=== PATIENT | female | born 2000 | race Caucasian/White ===

== ENCOUNTER 2022-11-06 10:55 | Emergency (ER) | payer MEDICAID, OTHER ==
[2022-11-06 12:24] LABS: BILIRUBIN,URINE NEGATIVE (NEGATIVE); GLUCOSE, URINE (UA) NEGATIVE (NEGATIVE); KETONES,URINE (UA) NEGATIVE (NEGATIVE); LEUKOCYTE ESTERASE, URINE NEGATIVE (NEGATIVE); NITRITE,URINE NEGATIVE (NEGATIVE); OCCULT BLOOD,URINE NEGATIVE (NEGATIVE); PROTEIN,URINE NEGATIVE (NEGATIVE); UROBILINOGEN,URINE 1 (NORMAL) E.U./dL (NORMAL)
[2022-11-06 12:25] LABS: CLARITY,URINE CLEAR (CLEAR); HCG UR QUAL NEGATIVE
[2022-11-06] MEDS ORDERED: PHENAZOPYRIDINE 100 MG TABLET PO STA (12:35)
--- NOTE | 2022-11-06 12:38 | ED Physician Documentation ---
History of Present Illness - Stated complaint Stated Complaint: FEMALE - Chief complaint Chief Complaint: UTI - History obtained from History obtained from: Patient - Additonal information Additional information: The patient comes to the emergency department chief complaint of urinary frequency and mild dysuria for the last 2 weeks. She denies any fevers or chills. No nausea or vomiting. No vaginal symptoms. No blood in her urine. She states she keeps feeling like she has to pee but it is just "a false alarm" and that little to nothing comes out. She states she drinks a lot of water. Harman joseph has had urinary tract infections before. No other complaints at this time. PD PAST MEDICAL HISTORY - Present Medications Home Medications: Ambulatory Orders Medication Instructions Recorded Confirmed Phenazopyridine HCl [Pyridium] 200 mg PO TID #6 tablet 11/06/22 - Allergies Allergies/Adverse Reactions: Allergies Allergy/AdvReac Type Severity Reaction Status Date / Time No Known Drug Allergies Allergy Verified 11/06/22 11:20 PD ED PE NORMAL - Vitals Vital signs reviewed: Yes - General General: Alert and oriented X 3, No acute distress, Well developed/nourished - HEENT HEENT: Atraumatic, PERRL, EOMI, Moist mucous membranes - Neck Neck: Supple, no meningeal sign - Cardiac Cardiac: RRR, No murmur - Respiratory Respiratory: No respiratory distress, Clear bilaterally - Abdomen Abdomen: Soft, Non tender, Non distended - Derm Derm: Warm and dry - Extremities Extremities: No deformity - Neuro Neuro: Alert and oriented X 3 - Psych Psych: Normal mood, Normal affect Results - Vitals Vitals: Vital Signs - 24 hr 11/06/22 11:18 Temperature 36.4 C L Heart Rate 70 Respiratory 20 Rate Blood Pressure 136/97 H O2 Saturation 97 Oxygen O2 Source Room air - Labs Labs: Laboratory Tests 11/06/22 12:16 Urine Color YELLOW Urine Clarity CLEAR Urine pH 6.0 Ur Specific [place] <=1.005 Urine Protein NEGATIVE Urine Glucose (UA) NEGATIVE Urine Ketones NEGATIVE Urine Occult Blood NEGATIVE Urine Nitrite NEGATIVE Urine Bilirubin NEGATIVE Urine Urobilinogen 1 (NORMAL) Ur Leukocyte Esterase NEGATIVE Ur Microscopic Review NOT INDICATED Urine Culture Comments NOT INDICATED Urine HCG, Qual NEGATIVE PD Medical Decision Making - ED course Complexity details: reviewed results, re-evaluated patient, considered differential, d/w patient ED course: Urinalysis was performed and found to be negative. I did place the patient on Pyridium and encouraged her to follow-up with her primary care physician or her plant maintenance engineer. We have discussed the usual indications for return. Departure - Departure Disposition: 01 Home, Self Care Clinical Impression: Dysuria Condition: Stable Instructions: ED Dysuria Uncertain Cause Prescriptions: Phenazopyridine HCl [Pyridium] 200 mg PO TID #6 tablet Comments: Your urinalysis was negative today. It is not clear why you have the sense of frequent urge to urinate and the discomfort with urination. We will put you on the medicine to help with this discomfort and you should continue to drink plenty of fluids. Please schedule a follow-up with your primary doctor for further concerns. Your prescription has been electronically transmitted to the [facility] pharmacy in [place], your pharmacy of choice on record.
[2022-11-06 12:57] VITALS: BP 94/62
== END 2022-11-06 12:54 | disposition home or self-care (01) ==
LOC: ED 10:55
DX: R30.0 Dysuria (principal)
CPT/HCPCS: 81003; 81025; 99283; A9270; 81001; 87086

== ENCOUNTER 2022-11-18 18:02 | Emergency (ER) | payer MEDICAID ==
--- NOTE | 2022-11-18 18:57 | ED Physician Documentation ---
History of Present Illness - Stated complaint Stated Complaint: SI - Chief complaint Chief Complaint: MHE - Additonal information Additional information: 22-year-old female presents emergency department with her kohinoor operator for evaluation of suicide attempt. Currently a resident at [facility]. Reportedly had gone into the bathroom where she took off her shoelaces and tied these shoelaces around her neck. She was notified that her mom had called to speak with her it was at this point that the housing staff became aware that she was attempting self-harm. However the patient was able to untie the shoestrings and open the door. Pt preferes the name Han Past medical history most significant for ADHD, autism dyslexia, bipolar disorder, OCD, panic attacks, gender dysphoria, depression and anxiety. Patient takes fluoxetine 20 mg daily as well as topiramate 25 mg daily. She recently established with our new mental health provider DYLAN Marcano. scheduled ot see in f/u 12/03/22 Patient has a flat affect. Poor eye contact. Does not clearly contract for safety but is clear to states she does not desire to be hospitalized. Review of Systems Psychiatric: reports: Depressed, Suicidal, Anxiety PD PAST MEDICAL HISTORY - Present Medications Home Medications: Ambulatory Orders Medication Instructions Recorded Confirmed Fluoxetine HCl [Prozac] 40 mg PO DAILY 11/18/22 11/18/22 Topiramate [Topamax] 25 mg PO DAILY 11/18/22 11/18/22 - Allergies Allergies/Adverse Reactions: Allergies Allergy/AdvReac Type Severity Reaction Status Date / Time No Known Drug Allergies Allergy Verified 11/18/22 18:18 PD ED PE NORMAL - General General: Alert and oriented X 3, Well developed/nourished - HEENT HEENT: Atraumatic, Moist mucous membranes - Neck Neck: Supple, no meningeal sign, Other (No signs of traumatic strangulation on the neck) - Cardiac Cardiac: RRR, No murmur - Respiratory Respiratory: No respiratory distress, Clear bilaterally - Abdomen Abdomen: Normal bowel sounds, Soft, Non tender, Non distended - Derm Derm: Normal color, Warm and dry, No rash - Extremities Extremities: No deformity - Neuro Neuro: Alert and oriented X 3, accident report clerk 2-12 intact Eye Opening: Spontaneous Motor: Obeys Commands Verbal: Oriented GCS Score: 15 - Psych Psych: No: Normal affect (Flat affect. Poor eye contact. States she does not want to be here anymore. Does not have a plan for suicide per se. Reports she does not want to be hospitalized. States she has been in and out of hospital since she was 17) Results - Vitals Vitals: Vital Signs - 24 hr 11/18/22 11/18/22 18:09 19:29 Temperature 36.4 C L Heart Rate 90 Respiratory 16 Rate Blood Pressure 144/86 H O2 Saturation 98 98 Oxygen O2 Source Room air - Labs Labs: Laboratory Tests 11/18/22 11/18/22 11/18/22 18:58 18:58 18:58 WBC 9.0 RBC 5.05 Hgb 14.0 Hct 43.6 MCV 86.3 MCH 27.7 MCHC 32.1 RDW 13.7 Plt Count 376 MPV 9.1 Neut # (Auto) 5.9 Lymph # (Auto) 2.4 [place] # (Auto) 0.6 Eos # (Auto) 0.1 Baso # (Auto) 0.0 Absolute Nucleated RBC 0.00 Nucleated RBC % 0.0 Sodium 137 Potassium 3.3 L Chloride 107 Carbon Dioxide 23 Anion Gap 7.0 BUN 8 Creatinine 0.8 Estimated GFR (MDRD) 91 Glucose 115 H Calcium 8.9 Magnesium 2.3 Total Bilirubin 0.6 AST 28 ALT 21 Alkaline Phosphatase 61 Total Creatine Kinase 377 H Total Protein 7.4 Albumin 3.9 Globulin 3.5 Albumin/Globulin Ratio 1.1 Lipase 22 TSH 0.60 Urine Color Urine Clarity Urine pH Ur Specific [place] Urine Protein Urine Glucose (UA) Urine Ketones Urine Occult Blood Urine Nitrite Urine Bilirubin Urine Urobilinogen Ur Leukocyte Esterase Urine RBC Urine WBC Ur Squamous Epith Cells Amorphous Sediment Urine Bacteria Ur Microscopic Review Urine Culture Comments Urine HCG, Qual Salicylates < 6.0 Urine Opiates Screen Ur Oxycodone Screen Urine Methadone Screen Ur Propoxyphene Screen Acetaminophen < 10 L Ur Barbiturates Screen Ur Tricyclics Screen Ur Phencyclidine Scrn Ur Amphetamine Screen U Methamphetamines Scrn U Benzodiazepines Scrn Urine Cocaine Screen U Cannabinoids Screen Ethyl Alcohol < 5.0 SARS-CoV-2 (PCR) 11/18/22 11/18/22 19:27 19:36 WBC RBC Hgb Hct MCV MCH MCHC RDW Plt Count MPV Neut # (Auto) Lymph # (Auto) [place] # (Auto) Eos # (Auto) Baso # (Auto) Absolute Nucleated RBC Nucleated RBC % Sodium Potassium Chloride Carbon Dioxide Anion Gap BUN Creatinine Estimated GFR (MDRD) Glucose Calcium Magnesium Total Bilirubin AST ALT Alkaline Phosphatase Total Creatine Kinase Total Protein Albumin Globulin Albumin/Globulin Ratio Lipase TSH Urine Color YELLOW Urine Clarity CLOUDY Urine pH 5.5 Ur Specific [place] >=1.030 H Urine Protein 30 H Urine Glucose (UA) NEGATIVE Urine Ketones NEGATIVE Urine Occult Blood NEGATIVE Urine Nitrite NEGATIVE Urine Bilirubin NEGATIVE Urine Urobilinogen 1 (NORMAL) Ur Leukocyte Esterase TRACE H Urine RBC 0-5 Urine WBC 4-5 Ur Squamous Epith Cells FEW Squamous Amorphous Sediment Few Urine Bacteria Few Ur Microscopic Review INDICATED Urine Culture Comments INDICATED Urine HCG, Qual NEGATIVE Salicylates Urine Opiates Screen NEGATIVE Ur Oxycodone Screen NEGATIVE Urine Methadone Screen NEGATIVE Ur Propoxyphene Screen NEGATIVE Acetaminophen Ur Barbiturates Screen NEGATIVE Ur Tricyclics Screen NEGATIVE Ur Phencyclidine Scrn NEGATIVE Ur Amphetamine Screen NEGATIVE U Methamphetamines Scrn NEGATIVE U Benzodiazepines Scrn POSITIVE H Urine Cocaine Screen NEGATIVE U Cannabinoids Screen NEGATIVE Ethyl Alcohol SARS-CoV-2 (PCR) NOT DETECTED PD Medical Decision Making - ED course Complexity details: reviewed results, re-evaluated patient, considered differential, d/w patient ED course: 22-year-old female who has a history of ADHD, autism, dyslexia borderline disorder, OCD as well as panic disorder and gender dysphoria presents to the emergency department after she attempted to tie a shoelace around her neck while at [employer]. Patient has a very flat affect and poor eye contact. She states that she does not want to be hospitalized though she is not able to tell me a safety plan for discharge. She was recently established with our psychiatric mental health PUMP SERVICER Jeet and has follow-up scheduled for December 03. I obtained the usual screening mental health labs today and per my in terpretation no acute worrisome findings. I do note that her CK is mildly elevated at 344 but her renal function is normal. I do not believe that this is clinically significant. Urine drug screen, alcohol, Tylenol and salicylates were all negative otherwise. 2144: Patient is awaiting telepsych consult. She has told this provider however that if mental health hospitalization was recommended she would not be voluntary. We did discuss an alternative plan of boarding overnight in the emergency department to speak with social work and patient felt like that would be appropriate. At this time she has remained stable here in the emergency department with no behavioral outbursts noted. Patient will be signed out to my nighttime colleague to follow-up on any acute overnight events and telepsych recommendations. Departure - Departure Clinical Impression: Suicide attempt, Borderline personality disorder in adult
[2022-11-18 19:04] LABS: BASOPHILS % (AUTO) 0.4 %; EOSINOPHILS # (AUTO) 0.1 10^3/uL (0.0-0.7); EOSINOPHILS % (AUTO) 0.6 %; HCT - HEMATOCRIT 43.6 % (37.0-47.0); LYMPHOCYTES # (AUTO) 2.4 10^3/uL (1.5-3.5); LYMPHOCYTES % (AUTO) 26.6 %; MEAN CORPUSCULAR HEMOGLOBIN 27.7 pg (27.0-31.0); MEAN CORPUSCULAR HGB CONC 32.1 g/dL (32.0-36.0); MEAN CORPUSCULAR VOLUME 86.3 fL (81.0-99.0); MEAN PLATELET VOLUME 9.1 fL (7.9-10.8); MONOCYTES # (AUTO) 0.6 10^3/uL (0.0-1.0); MONOCYTES % (AUTO) 6.5 %; NEUTROPHILS # (AUTO) 5.9 10^3/uL (1.5-6.6); NEUTROPHILS % (AUTO) 65.6 %; PLT - PLATELET COUNT 376 10^3/uL (130-450); RED BLOOD COUNT 5.05 10^6/uL (4.20-5.40); RED CELL DISTRIBUTION WIDTH 13.7 % (12.0-15.0)
[2022-11-18 19:20] LABS: ACETAMINOPHEN < 10 ug/mL (10-30); ALBUMIN 3.9 g/dL (3.2-5.5); ALBUMIN/GLOBULIN RATIO 1.1 (1.0-2.2); ALKALINE PHOSPHATASE 61 IU/L (42-121); ALT ALANINE AMINOTRANSFERASE 21 IU/L (10-60); AST ASPARTATE AMINOTRANSFERASE 28 IU/L (10-42); BILIRUBIN,TOTAL 0.6 mg/dL (0.2-1.0); BUN - BLOOD UREA NITROGEN 8 mg/dL (6-20); CALCIUM 8.9 mg/dL (8.5-10.3); CARBON DIOXIDE - CO2 23 mmol/L (21-32); CHLORIDE 107 mmol/L (101-111); CK- CREATINE KINASE 377 IU/L (22-269); CREATININE 0.8 mg/dL (0.4-1.0); ETOH - ETHANOL < 5.0 mg/dL; GFR - MDRD 91 (>89); GLUCOSE 115 mg/dL (70-100); LIPASE 22 U/L (22-51); MAGNESIUM 2.3 mg/dL (1.7-2.8); POTASSIUM 3.3 mmol/L (3.5-5.0); SALICYLATE < 6.0 mg/dL; SODIUM 137 mmol/L (135-145); TOTAL PROTEIN 7.4 g/dL (6.7-8.2)
[2022-11-18 19:38] LABS: MUDS CUTOFF CONCENTRATIONS CUTOFF CONC BELOW:
[2022-11-18 19:42] LABS: GLUCOSE, URINE (UA) NEGATIVE (NEGATIVE); KETONES,URINE (UA) NEGATIVE (NEGATIVE); LEUKOCYTE ESTERASE, URINE TRACE (NEGATIVE); NITRITE,URINE NEGATIVE (NEGATIVE); OCCULT BLOOD,URINE NEGATIVE (NEGATIVE); PH,URINE 5.5 PH (5.0-7.5); PROTEIN,URINE 30 mg/dL (NEGATIVE); UROBILINOGEN,URINE 1 (NORMAL) E.U./dL (NORMAL)
[2022-11-18 19:44] LABS: BILIRUBIN,URINE NEGATIVE (NEGATIVE); CLARITY,URINE CLOUDY (CLEAR); ICTOTEST,URINE NEGATIVE
[2022-11-18 19:45] LABS: HCG UR QUAL NEGATIVE
[2022-11-18 19:51] LABS: AMPHETAMINE SCREEN,URINE NEGATIVE (NEGATIVE); BARBITURATE SCREEN,UR NEGATIVE (NEGATIVE); BENZODIAZEPINES SCREEN, URINE POSITIVE (NEGATIVE); COCAINE SCREEN URINE NEGATIVE (NEGATIVE); METHADONE SCREEN, URINE NEGATIVE (NEGATIVE); METHAMPHETAMINES SCREEN, URINE NEGATIVE (NEGATIVE); OPIATE SCREEN, URINE NEGATIVE (NEGATIVE); OXYCODONE SCREEN, URINE NEGATIVE (NEGATIVE); PROPOXYPHENE SCREEN, URINE NEGATIVE (NEGATIVE); THC CANNABINOID SCREEN, URINE NEGATIVE (NEGATIVE); TRICYCLIC ANTIDEPRESSANT,URINE NEGATIVE (NEGATIVE)
[2022-11-18 19:55] LABS: AMORPHOUS SEDIMENT,UR Few /LPF; BACTERIA,URINE Few /HPF (None Seen); RBC,URINE 0-5 /HPF (0-5); SQUAMOUS EPITHELIAL CELL,UR FEW Squamous (<= Few)
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
[2022-11-19] MEDS ORDERED: LORazepam 1 MG TABLET PO STA (05:57)
[2022-11-19 13:00] VITALS: BP 122/72
--- NOTE | 2022-11-19 13:16 | ED Physician Documentation ---
ED Addendum - Addendum Addendum: 11/19/22 13:14 Patient was evaluated by IMGUEL, Esperanza, she does not feel that the patient is an imminent threat. She safety plan with the patient. She feels that the patient is safe for home. DCR states that the patient does not meet criteria for involuntary detainment. Patient does not wish to go voluntarily to a facility for treatment. Patient will have a counselor at [place] today. Patient will also follow-up with a outpatient counselor tomorrow from the DCR office. Patient contracts for safety. Patient will be discharged to the care of [place]. This document was made in part using voice recognition software. While efforts are made to proofread this document, sound alike and grammatical errors may occur. Departure - Departure Disposition: 01 Home, Self Care Clinical Impression: Suicide attempt, Borderline personality disorder in adult Condition: Good Instructions: ED Depression, ED Contract No Harm Follow-Up: Your,doctor in 1 week [Other] Comments: You have elected not to go to a hospital today for further treatment. The DCR does not feel that you meet criteria for an involuntary hold. You have safety planned with the DCR. There is a counselor [place] available to you. Please return if you worsen and please follow-up as scheduled. Crisis Line and is available to talk to someone [email or web address] is also available to chat with someone online if you prefer. There are also many resources on this website and apps for your phone to help with your mental health You can also text the word START to [phone] to chat with someome via text.
== END 2022-11-19 13:39 | disposition home or self-care (01) ==
LOC: ED 18:02
DX: F90.2 Attention-deficit hyperactivity disorder, combined type (principal); F84.0 Autistic disorder; R48.0 Dyslexia and alexia; F42.9 Obsessive-compulsive disorder, unspecified; F64.9 Gender identity disorder, unspecified; F31.4 Bipolar disorder, current episode depressed, severe, without psychotic features; Z20.822 Contact with and (suspected) exposure to COVID-19
CPT/HCPCS: 36415; 80053; 80306; 80307; 80320; 80329; 81001; 81025; 82550; 83690; 83735; 84443; 85025; 87086; 87635; 99283; 99284; G0425; Q3014; 81003

== ENCOUNTER 2022-12-06 22:55 | Emergency (ER) | payer OTHER, MEDICAID ==
[2022-12-06 23:43] LABS: BASOPHILS % (AUTO) 0.4 %; EOSINOPHILS # (AUTO) 0.1 10^3/uL (0.0-0.7); HCT - HEMATOCRIT 39.2 % (37.0-47.0); HGB - HEMOGLOBIN 12.6 g/dL (12.0-16.0); LYMPHOCYTES # (AUTO) 2.9 10^3/uL (1.5-3.5); LYMPHOCYTES % (AUTO) 32.5 %; MEAN CORPUSCULAR HGB CONC 32.1 g/dL (32.0-36.0); MEAN CORPUSCULAR VOLUME 87.1 fL (81.0-99.0); MEAN PLATELET VOLUME 9.1 fL (7.9-10.8); MONOCYTES # (AUTO) 0.8 10^3/uL (0.0-1.0); MONOCYTES % (AUTO) 9.1 %; NEUTROPHILS % (AUTO) 56.4 %; PLT - PLATELET COUNT 359 10^3/uL (130-450); RED CELL DISTRIBUTION WIDTH 13.4 % (12.0-15.0); WHITE BLOOD COUNT 8.9 x10^3/uL (4.8-10.8)
[2022-12-06 23:57] LABS: MUDS CUTOFF CONCENTRATIONS CUTOFF CONC BELOW:
[2022-12-06 23:59] LABS: ACETAMINOPHEN < 10 ug/mL (10-30); ALBUMIN 3.3 g/dL (3.2-5.5); ALBUMIN/GLOBULIN RATIO 0.9 (1.0-2.2); ALKALINE PHOSPHATASE 63 IU/L (42-121); ALT ALANINE AMINOTRANSFERASE 19 IU/L (10-60); AST ASPARTATE AMINOTRANSFERASE 17 IU/L (10-42); BILIRUBIN,TOTAL 0.5 mg/dL (0.2-1.0); BUN - BLOOD UREA NITROGEN 13 mg/dL (6-20); CALCIUM 8.7 mg/dL (8.5-10.3); CARBON DIOXIDE - CO2 21 mmol/L (21-32); CHLORIDE 109 mmol/L (101-111); CREATININE 0.9 mg/dL (0.4-1.0); ETOH - ETHANOL < 5.0 mg/dL; GFR - MDRD 80 (>89); GLUCOSE 97 mg/dL (70-100); LIPASE 26 U/L (22-51); MAGNESIUM 2.1 mg/dL (1.7-2.8); POTASSIUM 3.5 mmol/L (3.5-5.0); SALICYLATE < 6.0 mg/dL; SODIUM 137 mmol/L (135-145); TOTAL PROTEIN 6.8 g/dL (6.7-8.2)
[2022-12-07] LABS: BILIRUBIN,URINE NEGATIVE (NEGATIVE); GLUCOSE, URINE (UA) NEGATIVE (NEGATIVE); KETONES,URINE (UA) NEGATIVE (NEGATIVE); LEUKOCYTE ESTERASE, URINE TRACE (NEGATIVE); NITRITE,URINE NEGATIVE (NEGATIVE); OCCULT BLOOD,URINE NEGATIVE (NEGATIVE); PH,URINE 6.5 PH (5.0-7.5); PROTEIN,URINE NEGATIVE (NEGATIVE); UROBILINOGEN,URINE 1 (NORMAL) E.U./dL (NORMAL)
[2022-12-07 00:11] LABS: AMPHETAMINE SCREEN,URINE NEGATIVE (NEGATIVE); BACTERIA,URINE Moderate /HPF (None Seen); BARBITURATE SCREEN,UR NEGATIVE (NEGATIVE); BENZODIAZEPINES SCREEN, URINE NEGATIVE (NEGATIVE); CLARITY,URINE CLEAR (CLEAR); COCAINE SCREEN URINE NEGATIVE (NEGATIVE); HCG UR QUAL NEGATIVE; METHADONE SCREEN, URINE NEGATIVE (NEGATIVE); METHAMPHETAMINES SCREEN, URINE NEGATIVE (NEGATIVE); OPIATE SCREEN, URINE NEGATIVE (NEGATIVE); OXYCODONE SCREEN, URINE NEGATIVE (NEGATIVE); PROPOXYPHENE SCREEN, URINE NEGATIVE (NEGATIVE); RBC,URINE None Seen /HPF (0-5); SQUAMOUS EPITHELIAL CELL,UR FEW Squamous (<= Few); THC CANNABINOID SCREEN, URINE POSITIVE (NEGATIVE); TRICYCLIC ANTIDEPRESSANT,URINE NEGATIVE (NEGATIVE)
--- NOTE | 2022-12-07 01:27 | ED Physician Documentation ---
PD HPI MHE - Stated complaint Stated Complaint: SI - Chief complaint Chief Complaint: MHE - History obtained from History obtained from: Patient - Additional information Additional information: Patient is a 22-year-old presenting for evaluation of having suicidal thoughts. Patient states that they became upset this evening when a male that they like started to cuddle and be affectionate towards a friend of theirs.The patient then went into the bathroom and removed our razor blade from a shaving razor and cut himself on the thighs and right wrist. Patient states that this was to cope with her feelings and not trying to kill himself. Patient was seen here earlier this month and at that time was evaluated by telepsychiatry and the DCR and was discharged home. Patient states that at this time they feel they need inpatient help as they are unsure of how to cope with their feelings.Patient is on fluoxetine and topiramate. Has not started Strattera. Patient prefers to be called Han. Review of Systems Constitutional: denies: Fever Cardiac: denies: Chest pain / pressure Respiratory: denies: Dyspnea GI: denies: Abdominal Pain Skin: reports: Laceration (s) (superficial) PD PAST MEDICAL HISTORY - Present Medications Home Medications: Ambulatory Orders Medication Instructions Recorded Confirmed Fluoxetine HCl [Prozac] 40 mg PO DAILY 11/18/22 11/18/22 Topiramate [Topamax] 25 mg PO DAILY 11/18/22 11/18/22 Atomoxetine HCl [Strattera] 12/06/22 - Allergies Allergies/Adverse Reactions: Allergies Allergy/AdvReac Type Severity Reaction Status Date / Time No Known Drug Allergies Allergy Verified 11/18/22 18:18 - Social History Does the pt smoke?: No Smoking Status: Never smoker Does the pt drink ETOH?: No Does the pt have substance abuse?: No - Immunizations Immunizations are current?: Yes - POLST Patient has POLST: No PD ED PE NORMAL - General General: Alert and oriented X 3, No acute distress, Well developed/nourished - HEENT HEENT: Atraumatic - Neck Neck: Supple, no meningeal sign - Cardiac Cardiac: RRR, No murmur - Respiratory Respiratory: No respiratory distress, Clear bilaterally - Abdomen Abdomen: Soft, Non tender - Extremities Extremities: Other (Superficial lacerations to right wrist and thighs) - Neuro Neuro: Alert and oriented X 3, No motor deficit, Normal speech Results - Vitals Vitals: Vital Signs - 24 hr 12/06/22 23:00 Temperature 36.8 C Heart Rate 83 Respiratory 16 Rate Blood Pressure 103/62 O2 Saturation 98 Oxygen O2 Source Room air - Labs Labs: Laboratory Tests 12/06/22 12/06/22 12/06/22 23:35 23:35 23:35 WBC 8.9 RBC 4.50 Hgb 12.6 Hct 39.2 MCV 87.1 MCH 28.0 MCHC 32.1 RDW 13.4 Plt Count 359 MPV 9.1 Neut # (Auto) 5.0 Lymph # (Auto) 2.9 [place] # (Auto) 0.8 Eos # (Auto) 0.1 Baso # (Auto) 0.0 Absolute Nucleated RBC 0.00 Nucleated RBC % 0.0 Sodium 137 Potassium 3.5 Chloride 109 Carbon Dioxide 21 Anion Gap 7.0 BUN 13 Creatinine 0.9 Estimated GFR (MDRD) 80 L Glucose 97 Calcium 8.7 Magnesium 2.1 Total Bilirubin 0.5 AST 17 ALT 19 Alkaline Phosphatase 63 Total Protein 6.8 Albumin 3.3 Globulin 3.5 Albumin/Globulin Ratio 0.9 L Lipase 26 TSH 1.75 Urine Color Urine Clarity Urine pH Ur Specific [place] Urine Protein Urine Glucose (UA) Urine Ketones Urine Occult Blood Urine Nitrite Urine Bilirubin Urine Urobilinogen Ur Leukocyte Esterase Urine RBC Urine WBC Ur Squamous Epith Cells Urine Bacteria Ur Microscopic Review Urine Culture Comments Urine HCG, Qual Salicylates < 6.0 Urine Opiates Screen Ur Oxycodone Screen Urine Methadone Screen Ur Propoxyphene Screen Acetaminophen < 10 L Ur Barbiturates Screen Ur Tricyclics Screen Ur Phencyclidine Scrn Ur Amphetamine Screen U Methamphetamines Scrn U Benzodiazepines Scrn Urine Cocaine Screen U Cannabinoids Screen Ethyl Alcohol < 5.0 12/06/22 23:49 WBC RBC Hgb Hct MCV MCH MCHC RDW Plt Count MPV Neut # (Auto) Lymph # (Auto) [place] # (Auto) Eos # (Auto) Baso # (Auto) Absolute Nucleated RBC Nucleated RBC % Sodium Potassium Chloride Carbon Dioxide Anion Gap BUN Creatinine Estimated GFR (MDRD) Glucose Calcium Magnesium Total Bilirubin AST ALT Alkaline Phosphatase Total Protein Albumin Globulin Albumin/Globulin Ratio Lipase TSH Urine Color YELLOW Urine Clarity CLEAR Urine pH 6.5 Ur Specific [place] >=1.030 H Urine Protein NEGATIVE Urine Glucose (UA) NEGATIVE Urine Ketones NEGATIVE Urine Occult Blood NEGATIVE Urine Nitrite NEGATIVE Urine Bilirubin NEGATIVE Urine Urobilinogen 1 (NORMAL) Ur Leukocyte Esterase TRACE H Urine RBC None Seen Urine WBC 4-5 Ur Squamous Epith Cells FEW Squamous Urine Bacteria Moderate H Ur Microscopic Review INDICATED Urine Culture Comments INDICATED Urine HCG, Qual NEGATIVE Salicylates Urine Opiates Screen NEGATIVE Ur Oxycodone Screen NEGATIVE Urine Methadone Screen NEGATIVE Ur Propoxyphene Screen NEGATIVE Acetaminophen Ur Barbiturates Screen NEGATIVE Ur Tricyclics Screen NEGATIVE Ur Phencyclidine Scrn NEGATIVE Ur Amphetamine Screen NEGATIVE U Methamphetamines Scrn NEGATIVE U Benzodiazepines Scrn NEGATIVE Urine Cocaine Screen NEGATIVE U Cannabinoids Screen POSITIVE H Ethyl Alcohol PD Medical Decision Making - ED course Complexity details: reviewed results, re-evaluated patient, d/w patient ED course: Patient presenting for evaluation of suicidal thoughts. They seem to be increasing in the past Month. Tonight patient became upset and cut himself with a razor blade several times. None of these wounds require repair. Patient feels that they need some stabilization in an inpatient setting. Screening labs were obtained without significant findings.Urine analysis suggest infection.Patient does report some episodes of dysuria over the past 2 weeks so we will treat with Macrobid. As the patient is voluntary, nursing staff reached out to local psychiatric facilities for acceptance but no bed was found overnight. Thus patient is remained in the emergency department overnight. Patient has been calm and cooperative. Social work consult has been placed. Patient will be signed out to oncoming physician at shift change. Departure - Departure Clinical Impression: Depression, UTI (urinary tract infection), Self-harming behavior Condition: Stable
[2022-12-07] MEDS ORDERED: NITROFURANTOIN MACRO 100 MG CAPSULE PO STA (06:49)
[2022-12-07 12:47] VITALS: BP 112/72
== END 2022-12-07 12:45 | disposition home or self-care (01) ==
LOC: ED 22:55
DX: S71.119A Laceration without foreign body, unspecified thigh, initial encounter (principal); S61.511A Laceration without foreign body of right wrist, initial encounter; X78.8XXA Intentional self-harm by other sharp object, initial encounter; Y93.89 Activity, other specified; F32.A Depression, unspecified; N39.0 Urinary tract infection, site not specified
CPT/HCPCS: 36415; 80053; 80306; 80307; 80320; 80329; 81001; 81025; 83690; 83735; 84443; 85025; 87086; 99283; 99284; A9270; 81003; 82550

== ENCOUNTER 2022-12-11 15:26 | Emergency (ER) | payer OTHER, MEDICAID ==
[2022-12-11 15:36] VITALS: BP 143/95
--- NOTE | 2022-12-11 15:39 | ED Physician Documentation ---
History of Present Illness - Stated complaint Stated Complaint: LT EYE SWELLING,PX - Chief complaint Chief Complaint: Heent - Additonal information Additional information: 22-year-old female presents to the emergency department for evaluation of swelling and erythema on her scalp that began 4 days ago after using an [id number] hair dye. She thinks she had an allergic reaction to it she immediately rinsed all of the dye from her hair and has noticed that she continues to have redness and some pruritus. She was going to try and not treat this however this morning she woke up and had some swelling around her left eye. No trauma. No vision changes. She has a small amount of erythema and induration but no pain with eye movement. No history of similar in the past Review of Systems Constitutional: denies: Fever Eyes: denies: Loss of vision, Decreased vision, Photophobia, Discharge, Irritation Skin: reports: Lesions PD PAST MEDICAL HISTORY - Present Medications Home Medications: Ambulatory Orders Medication Instructions Recorded Confirmed Fluoxetine HCl [Prozac] 40 mg PO DAILY 11/18/22 11/18/22 Topiramate [Topamax] 25 mg PO DAILY 11/18/22 11/18/22 Atomoxetine HCl [Strattera] 12/06/22 Nitrofurantoin [Macrobid] 100 mg PO BID #14 cap 12/07/22 cephALEXin [Keflex] 500 mg PO Q6H #28 cap 12/11/22 predniSONE [Deltasone] 40 mg PO DAILY 4 Days #8 tablet 12/11/22 - Allergies Allergies/Adverse Reactions: Allergies Allergy/AdvReac Type Severity Reaction Status Date / Time No Known Drug Allergies Allergy Verified 12/11/22 15:28 - Social History Does the pt smoke?: No Smoking Status: Never smoker Does the pt drink ETOH?: No Does the pt have substance abuse?: No - Immunizations Immunizations are current?: Yes - POLST Patient has POLST: No PD ED PE NORMAL - General General: Alert and oriented X 3, No acute distress - HEENT HEENT: Atraumatic, Other (Small amount of swelling and erythema left periorbital region. Mildly tender. No pain with ocular movement. Preserved vision. Soft globe.) - Respiratory Respiratory: No respiratory distress, Clear bilaterally - Derm Derm: No: No rash (Generally erythematous scalp and neck and ears as a reaction/dermatitis to the hair dye.) Results - Vitals Vitals: Vital Signs - 24 hr 12/11/22 15:28 Temperature 36.5 C Heart Rate 80 Respiratory 16 Rate Blood Pressure 143/95 H O2 Saturation 97 Oxygen O2 Source Room air PD Medical Decision Making - ED course Complexity details: reviewed results, re-evaluated patient, d/w patient ED course: 42-year-old female presents emergency department for evaluation of swelling around her left eye that she woke up with this morning. There is a small amount of erythema but no ocular drainage or discharge. No vision changes. No pain with extraocular movement. Clinically I am more suspicious at this time for periorbital cellulitis and given the otherwise benign appearance and deferring CT imaging as I have lower suspicion for an orbital cellulitis. The patient also has some generalized scalp erythema and dermatitis that developed about 4 days ago after she used an [id number] hair dye. She clinically has a contact dermatitis. She did rinse all the hair dye but continues to have scalp erythema and a fair amount of pruritus. To treat this we will start her on prednisone. Prescription sent to [facility]. The usual emergent return precautions for worsening symptoms was discussed Departure - Departure Disposition: 01 Home, Self Care Clinical Impression: Periorbital cellulitis of left eye, Contact dermatitis of scalp Allergic reaction Qualifiers: Encounter type: initial encounter Qualified Code(s): T78.40XA - Allergy, unspecified, initial encounter Condition: Stable Record reviewed to determine appropriate education?: Yes Prescriptions: predniSONE [Deltasone] 40 mg PO DAILY 4 Days #8 tablet cephALEXin [Keflex] 500 mg PO Q6H #28 cap Comments: I would avoid using [id number] hair dyes in the future as you have developed a fairly significant allergic reaction to the hair dye. I did send a prescription for prednisone and a steroid to the [facility] in [place]. You also appear to have developed an early infection around your left eye for this I sent a prescription for an antibiotic called Keflex. If you find that despite taking the steroid and the antibiotic you are having worsening symptoms, develop any eye pain or have fevers then please return to the ER for second evaluation.
== END 2022-12-11 16:05 | disposition home or self-care (01) ==
LOC: ED 15:26
DX: L03.213 Periorbital cellulitis (principal); L25.9 Unspecified contact dermatitis, unspecified cause
CPT/HCPCS: 99282; 99283

== ENCOUNTER 2022-12-12 12:01 | Emergency (ER) | payer OTHER, MEDICAID ==
[2022-12-12 12:29] VITALS: BP 119/79
[2022-12-12] MEDS ORDERED: CETIRIZINE 10 MG TABLET PO STA (14:07)
[2022-12-12] MEDS ORDERED: predniSONE 20 MG TABLET PO STA (14:07)
--- NOTE | 2022-12-12 14:19 | ED Physician Documentation ---
History of Present Illness - Stated complaint Stated Complaint: SWELLING FACE - Chief complaint Chief Complaint: Heent - History obtained from History obtained from: Patient - History of Present Illness Pain level max: 0 Pain level now: 0 - Additonal information Additional information: Patient is a 22-year-old female who presents to the emergency department stating that she was seen here a few days ago after using a new hair dye and developed a rash on her scalp. She states that she was placed on steroids but is now out of them. She states the swelling had decreased but the swelling has started up again today. No fevers. No chills. No redness on her face. She states most of the swelling is now around her eyes. Denies any new make-ups, lotions, detergents. Review of Systems Constitutional: denies: Fever, Chills GI: denies: Vomiting, Diarrhea Skin: denies: Rash Musculoskeletal: denies: Neck pain, Back pain Neurologic: denies: Headache PD PAST MEDICAL HISTORY - Past Medical History Past Medical History: Yes Psych: Depression, ADD/ADHD - Past Surgical History Past Surgical History: No - Present Medications Home Medications: Ambulatory Orders Medication Instructions Recorded Confirmed Fluoxetine HCl [Prozac] 40 mg PO DAILY 11/18/22 12/12/22 Topiramate [Topamax] 25 mg PO DAILY PM 11/18/22 12/12/22 cephALEXin [Keflex] 500 mg PO Q6H #28 cap 12/11/22 12/12/22 predniSONE [Deltasone] 40 mg PO DAILY 4 Days #8 tablet 12/11/22 12/12/22 Atomoxetine HCl [Strattera] 25 mg PO DAILY 12/12/22 12/12/22 Cetirizine [ZyrTEC] 10 mg PO DAILY #10 tablet 12/12/22 Ketotifen Fumarate 5 ml EACHEYE BID PRN #5 ml 12/12/22 predniSONE [Deltasone] 10 mg PO [id number] #42 tab 12/12/22 - Allergies Allergies/Adverse Reactions: Allergies Allergy/AdvReac Type Severity Reaction Status Date / Time No Known Drug Allergies Allergy Verified 12/12/22 12:19 - Social History Does the pt smoke?: No Smoking Status: Never smoker Does the pt drink ETOH?: No Does the pt have substance abuse?: No - Immunizations Immunizations are current?: Yes - POLST Patient has POLST: No PD ED PE NORMAL - Vitals Vital signs reviewed: Yes - General General: Alert and oriented X 3, No acute distress - HEENT HEENT: Moist mucous membranes, Other (mild swelling B upper and lower eyelids. no erythema. no drainage. there is also a red, scaling burn on the scalp that is healing. no drainage. ) - Neck Neck: Supple, no meningeal sign - Cardiac Cardiac: RRR - Respiratory Respiratory: No respiratory distress, Clear bilaterally - Abdomen Abdomen: Soft, Non tender, Non distended - Derm Derm: Warm and dry - Neuro Neuro: Alert and oriented X 3 - Psych Psych: Normal mood, Normal affect Results - Vitals Vitals: Vital Signs - 24 hr 12/12/22 12:20 Temperature 36.8 C Heart Rate 93 Respiratory 18 Rate Blood Pressure 119/79 O2 Saturation 96 Oxygen O2 Source Room air PD Medical Decision Making - ED course Complexity details: reviewed results, re-evaluated patient, considered differential, d/w patient ED course: Patient with what appears to be a healing contact burn from her home hair dye. No signs of secondary infection. Appears to have a mild blepharitis as well. We will place on Zaditor, Zyrtec and steroids. We will have her follow-up with her doctor for further care. No indication for antibiotics. No evidence of orbital or periorbital cellulitis. No pain with extraocular movements. Patient counseled regarding signs and symptoms for which I believe and urgent re-evalu ation would be necessary. Patient with good understanding of and agreement to plan and is comfortable going home at this time This document was made in part using voice recognition software. While efforts are made to proofread this document, sound alike and grammatical errors may occur. Departure - Departure Disposition: Home, Self Care Clinical Impression: Blepharitis Qualifiers: Blepharitis type: unspecified type Laterality: bilateral Eyelid: both upper and lower Qualified Code(s): H01.00A - Unspecified blepharitis right eye, upper and lower eyelids Condition: Good Instructions: ED Inflammation Eyelid Follow-Up: your,doctor in 1 week [Other] Prescriptions: predniSONE [Deltasone] 10 mg PO [id number] #42 tab Ketotifen Fumarate 5 ml EACHEYE BID PRN #5 ml PRN Reason: Allergy Symptoms Cetirizine [ZyrTEC] 10 mg PO DAILY #10 tablet Comments: Your prescriptions were sent to [facility] in [place]. Please use the medications as prescribed. Please follow-up with your doctor for further care. Please return if you worsen. This appears to be a continuation of the allergic reaction from prior. There is no evidence of infection at this time Discharge Date/Time: 12/12/22 14:28
== END 2022-12-12 14:28 | disposition home or self-care (01) ==
LOC: ED 12:01
DX: H01.00B Unspecified blepharitis left eye, upper and lower eyelids (principal); H01.00A Unspecified blepharitis right eye, upper and lower eyelids; Z79.899 Other long term (current) drug therapy
CPT/HCPCS: 99283; A9270; J7512

== ENCOUNTER 2022-12-18 18:14 | Outpatient (CLI) | payer OTHER, MEDICAID | END 2022-12-18 18:15 | disposition critical access hospital (66) | LOC: EMS 18:14 | DX: R55 Syncope and collapse (principal); R53.1 Weakness; R42 Dizziness and giddiness | CPT/HCPCS: A0425; A0429 ==

== ENCOUNTER 2022-12-18 18:20 | Emergency (ER) | payer OTHER, MEDICAID ==
[2022-12-18 18:48] LABS: BASOPHILS % (AUTO) 0.2 %; HCT - HEMATOCRIT 43.6 % (37.0-47.0); HGB - HEMOGLOBIN 14.2 g/dL (12.0-16.0); LYMPHOCYTES # (AUTO) 0.9 10^3/uL (1.5-3.5); LYMPHOCYTES % (AUTO) 8.6 %; MEAN CORPUSCULAR HEMOGLOBIN 28.2 pg (27.0-31.0); MEAN CORPUSCULAR HGB CONC 32.6 g/dL (32.0-36.0); MEAN CORPUSCULAR VOLUME 86.7 fL (81.0-99.0); MEAN PLATELET VOLUME 9.4 fL (7.9-10.8); MONOCYTES # (AUTO) 0.3 10^3/uL (0.0-1.0); MONOCYTES % (AUTO) 2.4 %; NEUTROPHILS % (AUTO) 87.4 %; PLT - PLATELET COUNT 383 10^3/uL (130-450); RED BLOOD COUNT 5.03 10^6/uL (4.20-5.40); RED CELL DISTRIBUTION WIDTH 13.3 % (12.0-15.0); WHITE BLOOD COUNT 10.3 x10^3/uL (4.8-10.8)
[2022-12-18 18:59] LABS: ALBUMIN 3.5 g/dL (3.2-5.5); BILIRUBIN,TOTAL 0.4 mg/dL (0.2-1.0); CALCIUM 8.8 mg/dL (8.5-10.3); CREATININE 0.7 mg/dL (0.4-1.0); POTASSIUM 3.6 mmol/L (3.5-5.0)
--- NOTE | 2022-12-18 19:14 | ED Physician Documentation ---
History of Present Illness - Stated complaint Stated Complaint: NEAR SYNCOPE - Chief complaint Chief Complaint: Neuro - Additonal information Additional information: 22-year-old female presents emergency department for evaluation of a syncopal episode. Currently residing at [facility]. States she been watching TV for some time when she stood up began to feel lightheaded and then fainted. Patient does have a history of autism/anxiety and depression. Currently taking Strattera, fluoxetine, And topiramate. Denies any chest pain or shortness of air. Denies possibility of . Denies abdominal pain nausea or vomiting. [place] patient has had 5 or 6 ER visits. I have seen her multiple times and she does appear to be in her usual baseline health. Review of Systems Constitutional: denies: Fever, Chills Cardiac: denies: Chest pain / pressure, Palpitations Respiratory: denies: Dyspnea, Cough GI: reports: Reviewed and negative : reports: Reviewed and negative Neurologic: reports: Syncope. denies: Generalized weakness, Focal weakness, Numbness, Seizure, Confused, Headache, Head injury Psychiatric: reports: Reviewed and negative PD PAST MEDICAL HISTORY - Past Medical History Psych: Depression, ADD/ADHD - Past Surgical History Past Surgical History: No - Present Medications Home Medications: Ambulatory Orders Medication Instructions Recorded Confirmed Fluoxetine HCl [Prozac] 40 mg PO DAILY 11/18/22 12/12/22 Topiramate [Topamax] 25 mg PO DAILY PM 11/18/22 12/12/22 cephALEXin [Keflex] 500 mg PO Q6H #28 cap 12/11/22 12/12/22 predniSONE [Deltasone] 40 mg PO DAILY 4 Days #8 tablet 12/11/22 12/12/22 Atomoxetine HCl [Strattera] 25 mg PO DAILY 12/12/22 12/12/22 Cetirizine [ZyrTEC] 10 mg PO DAILY #10 tablet 12/12/22 Ketotifen Fumarate 5 ml EACHEYE BID PRN #5 ml 12/12/22 predniSONE [Deltasone] 10 mg PO [id number] #42 tab 12/12/22 - Allergies Allergies/Adverse Reactions: Allergies Allergy/AdvReac Type Severity Reaction Status Date / Time No Known Drug Allergies Allergy Verified 12/18/22 18:35 - Social History Does the pt smoke?: No Smoking Status: Never smoker Does the pt drink ETOH?: No Does the pt have substance abuse?: No - Immunizations Immunizations are current?: Yes - POLST Patient has POLST: No PD ED PE NORMAL - General General: Alert and oriented X 3, No acute distress. No: Well developed/no urished (Obese) - HEENT HEENT: Atraumatic, Moist mucous membranes - Neck Neck: Supple, no meningeal sign, No adenopathy - Cardiac Cardiac: RRR, No murmur, Strong equal pulses - Respiratory Respiratory: No respiratory distress, Clear bilaterally - Abdomen Abdomen: Normal bowel sounds, Soft - Back Back: No CVA TTP, No spinal TTP - Neuro Neuro: Alert and oriented X 3, director instrumentation 2-12 intact Eye Opening: Spontaneous Motor: Obeys Commands Verbal: Oriented GCS Score: 15 Results - Vitals Vitals: Vital Signs - 24 hr 12/18/22 12/18/22 18:24 19:25 Temperature 37 C Heart Rate 82 Heart Rate [ 73 Sitting] Heart Rate [ 118 H Standing] Heart Rate [ 68 Supine] Respiratory 14 Rate Blood Pressure 123/71 Blood Pressure 137/72 H [Sitting] Blood Pressure 155/83 H [Standing] Blood Pressure 126/79 [Supine] O2 Saturation 99 Oxygen O2 Source Room air - EKG (time done) 1918 EKG releavant findings:: EKG personally interpreted by author of this note. Relevant findings are: Rate: Rate (enter#) (61) Rhythm: NSR [place]: Normal Intervals: Normal CT QRS: Normal Ischemia: Normal ST segments Compare to prior EKG: Unchanged from prior EKG Computer interpretation: Agree with computer - Labs Labs: Laboratory Tests 12/18/22 12/18/22 12/18/22 18:41 18:41 18:44 WBC 10.3 RBC 5.03 Hgb 14.2 Hct 43.6 MCV 86.7 MCH 28.2 MCHC 32.6 RDW 13.3 Plt Count 383 MPV 9.4 Neut # (Auto) 9.0 H Lymph # (Auto) 0.9 L [place] # (Auto) 0.3 Eos # (Auto) 0.0 Baso # (Auto) 0.0 Absolute Nucleated RBC 0.00 Nucleated RBC % 0.0 Sodium 137 Potassium 3.6 Chloride 107 Carbon Dioxide 22 Anion Gap 8.0 BUN 11 Creatinine 0.7 Estimated GFR (MDRD) 107 Glucose 167 H Calcium 8.8 Total Bilirubin 0.4 AST 18 ALT 17 Alkaline Phosphatase 60 Total Protein 7.0 Albumin 3.5 Globulin 3.5 Albumin/Globulin Ratio 1.0 Lipase 24 Serum HCG, Qual NEGATIVE PD Medical Decision Making - ED course Complexity details: reviewed results, re-evaluated patient, considered differential, d/w patient ED course: 22-year-old female presents emergency department for evaluation of a syncopal episode. She states that she had used cannabis and vaped earlier in the day. She was watching TV at [employer] when she stood up felt suddenly faint dizzy and passed out. No history of similar in the past. On presentation to the emergency department she is alert and well-appearing. She does have a history of anxiety depression and what I suspect to be autism. Initially in the emergency department we did check her orthostatic vital signs and found that she had a rise in heart rate to 118 when standing. I did obtain CBC and electrolytes and per my interpretation no acute findings. She is not . The orthostasis was treated with a liter of IV fluids and on reevaluation she no longer has orthostatic vital sign changes as such she is stable for discharge home. Clinically there is nothing to suggest an history exam or labs of ACS or heart failure. Chest x-ray was unremarkable. I am advising the patient to discuss orthostasis with her PCP. She may benefit from Holter monitor. The usual emergent return precautions were discussed for worsening symptoms. Departure - Departure Disposition: 01 Home, Self Care Clinical Impression: Orthostasis Syncope Qualifiers: Syncope type: unspecified Qualified Code(s): R55 - Syncope and collapse Condition: Stable Record reviewed to determine appropriate education?: Yes Instructions: ED Hypotension Orthostatic Comments: You were seen today in the emergency department because you fainted. Your labs and EKG as well as your chest x-ray were all essentially normal. However when we checked your vital signs in different positions we found that your heart rate went from 70-1 20 with standing. This is a condition called orthostasis. Here in the emergency department we did give you some IV fluids and on reevaluation your heart rate has improved with standing. This can sometimes be seen with mild dehydration. It is important that you discuss this ED finding with a primary care doctor. I do recommend that you use one of the local urgent cares either in [place] or [place] in order to obtain a primary doctor. You may benefit from referral for a Holter monitor. Return to the ER if you find that you have recurrent fainting symptoms. It is important that you stay well-hydrated and eat small frequent snacks and meals throughout the day to prevent feeling lightheaded.
--- NOTE | 2022-12-18 19:20 | XRAY Report ---
PROCEDURE: Chest 1 View X-Ray INDICATIONS: Chest Pain TECHNIQUE: One view of the chest was acquired. COMPARISON: None. FINDINGS: Surgical changes and devices: None. Lungs and pleura: No pleural effusions or pneumothorax. Lungs are clear. Mediastinum: Mediastinal contours appear normal. Heart size is normal. Bones and chest wall: No suspicious bony lesions. Overlying soft tissues appear unremarkable. IMPRESSION: No acute cardiopulmonary process. Reviewed by: Tomasz Hoyos on 12/18/2022 6:19 PM EWELINA Approved by: Tomasz Hoyos on 12/18/2022 6:19 PM EWELINA Station ID: [id number]
[2022-12-18 19:26] LABS: HCG,QUALITATIVE BLOOD NEGATIVE
[2022-12-18] MEDS ORDERED: SODIUM CHLORIDE 0.9% 1,000 ML IV STA (19:39)
[2022-12-18 20:45] VITALS: BP 132/75
== END 2022-12-18 20:43 | disposition home or self-care (01) ==
LOC: EDUNIT# → ED 18:20
DX: I95.1 Orthostatic hypotension (principal)
CPT/HCPCS: 36415; 80053; 83690; 84703; 85025; 93005; 99283; 99284

== ENCOUNTER 2023-01-18 17:28 | Outpatient (CLI) | payer OTHER, MEDICAID | END 2023-01-18 23:59 | disposition EMS.NT | LOC: EMS 17:28 | DX: R55 Syncope and collapse (principal) ==

== ENCOUNTER 2023-01-31 21:00 | Emergency (ER) | payer OTHER, MEDICAID ==
[2023-01-31] MEDS ORDERED: BACITRACIN ZINC OINT 1 PACKET TOP STA (21:49)
--- NOTE | 2023-01-31 21:54 | ED Physician Documentation ---
PD HPI MHE - Stated complaint Stated Complaint: SI - Chief complaint Chief Complaint: MHE - History obtained from History obtained from: Patient - Additional information Additional information: 22yF with hx bipolar disorder, ocd, autism spectrum, gender identity issues, p/w self-cutting behavior tonight, with shallow cuts to both thighs. patient endorses loneliness, not feeling popular, and feelings of frustration at the onboarding process for her new job she is about to start. denies SI/HI/AVH. endorses taking her mental health medications regularly and is not missing doses but states she also uses marijuana to supplement them. PD PAST MEDICAL HISTORY - Past Medical History Psych: Depression, ADD/ADHD - Past Surgical History Past Surgical History: No - Present Medications Home Medications: Ambulatory Orders Medication Instructions Recorded Confirmed Fluoxetine HCl [Prozac] 40 mg PO DAILY 11/18/22 12/12/22 Topiramate [Topamax] 25 mg PO DAILY PM 11/18/22 12/12/22 cephALEXin [Keflex] 500 mg PO Q6H #28 cap 12/11/22 12/12/22 predniSONE [Deltasone] 40 mg PO DAILY 4 Days #8 tablet 12/11/22 12/12/22 Atomoxetine HCl [Strattera] 25 mg PO DAILY 12/12/22 12/12/22 Cetirizine [ZyrTEC] 10 mg PO DAILY #10 tablet 12/12/22 Ketotifen Fumarate 5 ml EACHEYE BID PRN #5 ml 12/12/22 predniSONE [Deltasone] 10 mg PO [id number] #42 tab 12/12/22 - Allergies Allergies/Adverse Reactions: Allergies Allergy/AdvReac Type Severity Reaction Status Date / Time No Known Drug Allergies Allergy Verified 01/31/23 21:03 - Social History Does the pt smoke?: No Smoking Status: Never smoker Does the pt drink ETOH?: No Does the pt have substance abuse?: No - Immunizations Immunizations are current?: Yes - POLST Patient has POLST: No PD ED PE NORMAL - Vitals Vital signs reviewed: Yes - General General: Alert and oriented X 3, No acute distress, Well developed/nourished - HEENT HEENT: Atraumatic, PERRL, EOMI, Moist mucous membranes - Derm Derm: Normal color, Warm and dry, Other (BL thigh horizontal excoriations/ abrasions) Results - Vitals Vitals: Vital Signs - 24 hr 01/31/23 21:03 Temperature 36.5 C Heart Rate 70 Respiratory 16 Rate Blood Pressure 150/90 H O2 Saturation 97 Oxygen O2 Source Room air PD Medical Decision Making - ED course ED course: 22yF presents from [facility] with cutting of BL thighs. Childhood vaccines including tetanus utd per her report. denies si/hi/avh, endorsing depressed mood. states she was cutting to release her emotions. discussed need to reinstitute counseling services and provided referrals for mental health and pcp. contracted for safety. return precautions given. Departure - Departure Disposition: Home, Self Care Clinical Impression: Depressed mood, Self-injurious behavior, Abrasion of thigh Condition: Stable Instructions: ED Depression Comments: You were seen in the ED for mental health evaluation and for cutting behavior. Please follow up with a primary care provider (list provided) for referral to psychiatry. You also can follow up with [facility] for referral to a mental health therapist. Return to the ED if you have thoughts of killing yourself, harming or killing anyone else, or are having hallucinations, or if you have any other concerns. [place] [address] [address] [place] [address] Crisis care line [facility] crisis line Call any time 04/01 to speak with a licensed mental health professional.
[2023-01-31 22:07] VITALS: BP 115/94; O2SAT 100
== END 2023-01-31 22:04 | disposition home or self-care (01) ==
LOC: ED 21:00
DX: S70.312A Abrasion, left thigh, initial encounter (principal); S70.311A Abrasion, right thigh, initial encounter; X83.8XXA Intentional self-harm by other specified means, initial encounter; Y93.89 Activity, other specified; Y92.119 Unspecified place in children's home and orphanage as the place of occurrence of the external cause; F32.A Depression, unspecified
CPT/HCPCS: 99282; 99283; A9270